=== PATIENT | female | born 1960 | race Caucasian/White ===

== ENCOUNTER 2023-10-20 11:33 | Emergency (ER) | payer MEDICARE, BC ==
[2023-10-20] MEDS: Ketorolac 30 MG/ML SDV IM ONE (12:22)
[2023-10-20] MEDS ORDERED: Sodium Chloride 0.9% 10 ML Syringe FLUSH PRN (12:38)
[2023-10-20 13:04] LABS: BASOPHILS ABSOLUTE AUTO 0.03 K/uL (0.02-0.10); BASOPHILS PERCENT AUTO 0.2 % (0.0-0.5); EOSINOPHILS ABSOLUTE AUTO 0.01 K/uL (0.04-0.40); EOSINOPHILS PERCENT AUTO 0.1 % (1.0-5.0); HEMATOCRIT 46.2 % (37.0-47.0); HEMOGLOBIN 15.8 g/dL (11.5-16.5); LYMPHOCYTES ABSOLUTE AUTO 1.48 K/uL (1.50-4.00); MEAN CORPUSCULAR HEMOGLOBIN 30.7 pg (27.0-32.0); MEAN CORPUSCULAR HGB CONC 34.2 g/dL (31.0-35.0); MEAN CORPUSCULAR VOLUME 90 fL (76-96); MEAN PLATELET VOLUME 10.6 fL (6.0-10.0); MONOCYTES ABSOLUTE AUTO 0.85 K/uL (0.20-0.80); MONOCYTES PERCENT AUTO 5.8 % (3.0-10.0); NEUTROPHILS PERCENT AUTO 83.9 % (45.0-70.0); PLATELET COUNT,PLT 241 K/uL (150-500); RED BLOOD CELL COUNT 5.14 M/uL (3.80-5.80); RED CELL DISTRIBUTION WIDTH 12.3 % (11.0-16.0); WHITE BLOOD CELL COUNT,WBC 14.8 K/uL (4.0-11.0)
[2023-10-20 13:27] LABS: A/G RATIO 1.1 (0.8-2.0); ALBUMIN 4.1 g/dL (3.4-5.0); ANION GAP 15.8 mmol/L (5.0-15.0); BILIRUBIN TOTAL 0.7 mg/dL (0.0-1.0); CALCIUM 9.6 mg/dL (8.5-10.1); CARBON DIOXIDE,CO2 25.4 mmol/L (21.0-32.0); CREATININE 1.21 mg/dL (0.55-1.02); EST CRCL DRUG DOSING (CG) 51.81 mL/min; POTASSIUM,K 4.2 mmol/L (3.5-5.1); PROTEIN TOTAL,TP 7.8 g/dL (6.4-8.2)
[2023-10-20] MEDS: HYDROmorphone 2 MG/ML Syringe SUBCUT PRN (13:43)
[2023-10-20] MEDS: HYDROmorphone 2 MG/ML Syringe ONE (13:44)
[2023-10-20] MEDS: Ondansetron 4 MG/2 ML SDV IVPUSH ONE (14:09)
[2023-10-20] MEDS: Sodium Chloride 0.9% 1,000 ML IV SCH (14:10)
[2023-10-20] MEDS: Tamsulosin 0.4 MG Cap.ER PO ONE (14:37)
[2023-10-20] MEDS: Ondansetron 4 MG/2 ML SDV ONE (14:38)
[2023-10-20 15:44] LABS: APPEARANCE,URINE CLEAR (CLEAR); BILIRUBIN,URINE NEGATIVE (NEGATIVE); COLOR,URINE YELLOW; GLUCOSE,URINE NEGATIVE (NEGATIVE); KETONES,URINE 80 mg/dL (NEGATIVE); LEUKOCYTE ESTERASE,URINE NEGATIVE (NEGATIVE); NITRITE,URINE NEGATIVE (NEGATIVE); OCCULT BLOOD,URINE NEGATIVE (NEGATIVE); PROTEIN,URINE 30 mg/dL (NEGATIVE)
[2023-10-20 15:50] LABS: RBC,URINE 0-5 /HPF; SQUAMOUS EPITHELIAL CELLS,UR OCCASIONAL /HPF; WBC,URINE 0-5 /HPF
[2023-10-21] MEDS: Tamsulosin 0.4 MG Cap.ER ONE (11:46)
[2023-10-21] MEDS: Ondansetron 4 MG/2 ML SDV ONE (11:46)
== END 2023-10-20 16:16 | disposition home or self-care (01) ==
LOC: LB.ED 11:33
DX: N13.2 Hydronephrosis with renal and ureteral calculous obstruction (principal); Z90.49 Acquired absence of other specified parts of digestive tract; Z90.710 Acquired absence of both cervix and uterus
CPT/HCPCS: 36415; 74176; 80053; 81001; 85025; 96372; 96374; 99284; A9270; J1170; J1885; J2405; J7030